=== PATIENT | female | born 1975 | race Caucasian/White ===

== ENCOUNTER 2016-07-26 10:36 | Inpatient (IN) | payer BC, OTHER ==
[2016-06-26 13:50] VITALS: BMI 32.0
--- NOTE | 2016-06-26 14:19 | PAT Medication Instructions ---
Service Date Jun 26, 2016. Current Home Medication List Acyclovir (Zovirax), 400 MG PO BID Albuterol Inhaler (Ventolin Inhaler), 2 PUFFS INH QID PRN for PRN Albuterol Sulf (Proventil 0.083% 2.5MG/3ML), 2.5 MG INH QID PRN for PRN Aspirin (Aspirin Ec), 325 MG PO QAM Buspirone Hcl (Buspar), 5 MG PO TID Cyclobenzaprine Hcl (Flexeril), 10 MG PO HS Fluticasone Propionate (Nasal) (Flonase Allergy Relief), 2 SPRAYS [place]IL[place] QAM Levocetirizine Dihydrochloride (Levocetirizine Dihydrochl), 1 TAB PO QPM Naphazoline/Pheniramine (Naphcon-A), 2 DROPS OPB PRN Saline (Saline Nasal [place] ), 2 [place] PRN Tiotropium [place] (Spiriva Handihaler), 1 CAP INH QAM Tramadol (Ultram), 50 MG PO PRN Valacyclovir (Valtrex), 1,000 MG PO PRN Venlafaxine Hcl (Venlafaxine Extended Rel), 25 MG PO QAM Medication Instructions For Your Scheduled Surgery - Check with surgeon for instructions: Aspirin (Aspirin Ec), 325 MG PO QAM - Take the following medications the morning of surgery with a sip of water: Albuterol Inhaler (Ventolin Inhaler), 2 PUFFS INH QID PRN for PRN (bring with you to hospital morning of surgery) Albuterol Sulf (Proventil 0.083% 2.5MG/3ML), 2.5 MG INH QID PRN for PRN Venlafaxine Hcl (Venlafaxine Extended Rel), 25 MG PO QAM Valacyclovir (Valtrex), 1,000 MG PO PRN Buspirone Hcl (Buspar), 5 MG PO TID Fluticasone Propionate (Nasal) (Flonase Allergy Relief), 2 SPRAYS [place] QAM Tiotropium Lasara (Spiriva Handihaler), 1 CAP INH QAM Saline (Saline Nasal [place] ), 2 [place] PRN Naphazoline/Pheniramine (Naphcon-A), 2 DROPS OPB PRN Acyclovir (Zovirax), 400 MG PO BID Tramadol (Ultram), 50 MG PO PRN (okay to take up to 4 hours prior to surgery if needed) - Take the following medications as scheduled the night before surgery: Albuterol Inhaler (Ventolin Inhaler), 2 PUFFS INH QID PRN for PRN Albuterol Sulf (Proventil 0.083% 2.5MG/3ML), 2.5 MG INH QID PRN for PRN Valacyclovir (Valtrex), 1,000 MG PO PRN Buspirone Hcl (Buspar), 5 MG PO TID Cyclobenzaprine Hcl (Flexeril), 10 MG PO HS Fluticasone Propionate (Nasal) (Flonase Allergy Relief), 2 SPRAYS [place]IL[place] QAM Saline (Saline Nasal [place] Infant), 2 [place] PRN Naphazoline/Pheniramine (Naphcon-A), 2 DROPS OPB PRN Acyclovir (Zovirax), 400 MG PO BID Tramadol (Ultram), 50 MG PO PRN Levocetirizine Dihydrochloride (Levocetirizine Dihydrochl), 1 TAB PO QPM If you have any questions please call us at [phone] (Kimmy Oglesby PA-C) or [phone] or [phone]
--- NOTE | 2016-06-26 14:51 | DIAGNOSTIC IMAGING REPORT ---
CHEST 2 VIEWS ROUTINE CLINICAL HISTORY: PAT preoperative evaluation COMPARISON STUDY: 12/17/2013 FINDINGS: The bones soft tissues and hemidiaphragms are normal. The cardiomediastinal silhouette is normal. The lungs are clear. The pulmonary vasculature is normal. IMPRESSION: Negative chest. Electronically signed by: Sivakumar Cox M.D. 06/26/2016 2:50 PM
[2016-06-26 15:04] LABS: BASO % 0.2 %; BASO ABS # 0.02 K/uL (0-0.2); COMPLETE YES; EOS % 1.8 %; HEMATOCRIT 42.5 % (37-47); IG% 0.3 %; LYMPH % 20.2 %; LYMPH ABS # 2.28 K/uL (1.2-3.4); MEAN CELL VOLUME 93.2 fL (80-100); MEAN CORPUSCULAR HEMOGLOBIN 32.7 pg (25-34); MEAN CORPUSCULAR HGB CONC 35.1 g/dl (32-36); MEAN PLATELET VOLUME 10.5 fL (7.4-10.4); MONO % 7.7 %; NEUT % 69.8 %; PLATELET COUNT 263 K/uL (130-400); RED BLOOD COUNT 4.56 M/uL (4.2-5.4)
[2016-06-26 15:28] LABS: BUN/CREATININE RATIO 13.5 (10-20); CREATININE 0.64 mg/dl (0.60-1.20); POTASSIUM 3.9 mmol/L (3.5-5.1)
[2016-06-26 15:50] LABS: CALCIUM 9.1 mg/dl (8.5-10.1)
--- NOTE | 2016-07-25 10:30 | HISTORY & PHYSICAL EXAMINATION ---
DATE OF ADMISSION: 07/26/2016 CHIEF COMPLAINT: Low back pain and right leg pain, numbness and tingling. HISTORY OF PRESENT ILLNESS: Ms. Rivera is a patient who we have been following along for difficulties with her lower back. She has known spinal stenosis and nerve compression at the L4-L5 and L5-S1 segments. She has failed conservative measures and at this point is considering possible surgical intervention. She denies any micheline weakness, any other numbness, tingling, or paresthesias. PAST MEDICAL HISTORY: Significant for asthma, COPD, migraine headaches. ALLERGIES: SHE HAS ALLERGIES TO Monoleukast. MEDICATIONS: She does not have a current list of medications but should be recorded in her preoperative testing. SOCIAL HISTORY: The patient is a nonsmoker, does not use any alcohol. PHYSICAL EXAMINATION: GENERAL: She stands and moves easily about the exam room. Lower extremity motor exam reveals no focal atrophy. Strength and sensation both intact. She has positive straight leg raise on the right. Visual bruno are grossly intact. CARDIOVASCULAR EXAMINATION: Reveals no gross abnormalities. ABDOMEN: Soft, nontender. EXTREMITIES: Calves are soft and nontender. SKIN: Without any masses or lesions. The patient is alert and oriented. RADIOGRAPHIC IMAGES: Recent MRI demonstrates significant nerve compression at the L4-L5 and L5-S1 segments. ASSESSMENT: Low back pain with right radiculopathy. PLAN: At this point, the patient has failed ongoing conservative measures. We discussed surgical options and at this point would like to proceed with a lumbar decompression at the L4-L5 and L5-S1 segments. This again in conjunction with instrumented fusion as we have to remove a large portion of the facet joints iatrogenically recreating instability. Discussed the benefit of surgery, significant chance of reduction of her radicular complaints to a lesser degree back pain. Risks of surgery include but are not limited to from anesthetic, stroke, blindness, infection, bleeding requiring transfusion, incomplete relief of symptoms, adjacent level disease and need for reoperation. After a thorough discussion, she would like to proceed with surgery as outlined above. We will go ahead and make necessary arrangements for this. Preoperative testing and date of surgery set. MTDD
[~2016-07-26] VITALS: Ht 167.6 cm; Wt 89.7 kg
[2016-07-26] VITALS (7 sets, daily range): BP systolic 112–138; BP diastolic 69–98; PULSE 62–93; TEMP 36.6–37.1; O2SAT 95–99; Ht 167.6 cm; Wt 89.7 kg
--- NOTE | 2016-07-26 07:31 | History & Physical Bridge Note ---
H&P Re-Evaluation Bridge Note: I have examined the patient, reviewed the History & Physical and in the interval since the performance of the History & Physical I have noted the following changes of clinical significance: No changes noted
--- NOTE | 2016-07-26 09:23 | Anesthesiology Progress Note ---
Anesthesia Post Op Note Date & Time Jul 26, 2016 at 09:22 Notes Mental Status: alert / awake / arousable, participated in evaluation Pt Amnestic to Procedure: Yes Nausea / Vomiting: adequately controlled Pain: adequately controlled Airway Patency, RR, SpO2: stable & adequate BP & HR: stable & adequate Hydration State: stable & adequate Anesthetic Complications: no major complications apparent Block working in PACU
[~2016-07-26 10:36] MED LIST: ACYC1CAP8 PO; ALBINS/ INH; ALBUAER19 INH; ASPI325T39 PO; BUSP15TA70 PO; CEFAZOLIN 2000 MG/60 ML D5W IV SCH; CYCL10TA6 PO; FLUT0.15 NAE; LACTATED RINGER'S 1000ML 1,000 ML IV SCH; LEVO-14 PO; NPHA OPB; SALI1SPR15 NAE; TIOTCAP INH; TRAM-10 PO; VALA500T60 PO; VENL75CA73 PO
[2016-07-26] MEDS ORDERED: OMEP40CA PO (11:23)
[2016-07-26] MEDS ORDERED: FENTANYL CITRATE INJ 50 MCG/1 ML 2 ML VIAL ONE ×2 (14:18→14:48)
[2016-07-26] MEDS ORDERED: MIDAZOLAM HCL 1 MG/ML 2ML VIAL ONE (14:18)
[2016-07-26] MEDS ORDERED: HYDROmorphone INJ 2 MG/ML SYR/VIAL ONE (14:48)
[2016-07-26] MEDS ORDERED: PROPOFOL IV EMULSION 10 MG/ML 20 ML VIAL IV ONE (15:06)
[2016-07-26] MEDS ORDERED: ROCURONIUM BROMIDE 10 MG/ML 5 ML VIAL ONE ×2 (15:06→15:36)
[2016-07-26] MEDS ORDERED: LIDOCAINE HCL 2% 2 ML VIAL (20MG/ML) ONE (15:06)
[2016-07-26] MEDS ORDERED: DEXAMETHASONE SOD INJ 4 MG/ML VIAL ONE (15:06)
[2016-07-26] MEDS ORDERED: GLYCOPYRROLATE INJ 0.2 MG/ML VIAL ONE (15:36)
[2016-07-26] MEDS ORDERED: NEOSTIGMINE METHYLSULFATE 1 MG/ML 10ML VIAL ONE (15:36)
[2016-07-26] MEDS ORDERED: PHENYLEPHRINE 100MCG/ML 5ML SYR ONE (15:36)
[2016-07-26] MEDS ORDERED: FLOSEAL HEMOSTATIC MATRIX 10ML TOP ONE (16:18)
[2016-07-26] MEDS ORDERED: BUPIVACAINE/EPINEPHRINE 0.5% MPF 1:200,000 30 ML VIAL INJ ONE (16:18)
[2016-07-26] MEDS ORDERED: BACITRACIN 50000 UNIT VIAL IR ONE (16:18)
[2016-07-26] MEDS ORDERED: SODIUM CHLORIDE 0.9% 1000ML 1,000 ML IV SCH (16:22)
[2016-07-26] MEDS ORDERED: LORAZEPAM 0.5 MG TAB PO PRN (16:30)
[2016-07-26] MEDS ORDERED: NALOXONE HCL 0.4 MG/1 ML VIAL/CARP IV PRN ×2 (16:30)
[2016-07-26] MEDS ORDERED: ALBUTEROL 0.083% NEBU SOLN 3 ML VIAL INH PRN (16:30)
[2016-07-26] MEDS ORDERED: ACETAMINOPHEN 500 MG TAB PO PRN (16:30)
[2016-07-26] MEDS ORDERED: FAMOTIDINE 20 MG TAB PO PRN (16:30)
[2016-07-26] MEDS ORDERED: LORAZEPAM INJ 0.5 MG in SYRINGE 0.75 ML IV PRN (16:30)
[2016-07-26] MEDS ORDERED: ALUMINUM/MAGNESIUM SUSP 30 ML UDC PO PRN (16:30)
[2016-07-26] MEDS ORDERED: ALBUTEROL HFA 8 GM INHALER INH PRN (16:30)
[2016-07-26] MEDS ORDERED: SOD PHOSPHATE/SOD BIPHOSPHATE ENEMA 132 ML BTL PR PRN (16:30)
[2016-07-26] MEDS ORDERED: METOCLOPRAMIDE HCL INJ 5 MG/ML 2 ML VIAL IV PRN (16:30)
[2016-07-26] MEDS ORDERED: NAPHAZOLIN/PHENIRAMIN OPH SOLN 75 DROPS/5 ML BTL OPB PRN (16:30)
[2016-07-26] MEDS ORDERED: ONDANSETRON INJ 2 MG/ML 2 ML VIAL IV PRN ×2 (16:30→18:00)
[2016-07-26] MEDS ORDERED: BISACODYL 10 MG SUPP PR PRN (16:30)
[2016-07-26] MEDS ORDERED: ACETAMINOPHEN IV 100 ML IV PRN (16:30)
[2016-07-26] MEDS ORDERED: DO NOT ADMINISTER PNEUMOCOCCAL VACCINE PRN ×2 (16:30)
[2016-07-26] MEDS ORDERED: hydrOXYzine HCL 25 MG TAB PO PRN (16:30)
[2016-07-26] MEDS ORDERED: DO NOT ADMINISTER FLU VACCINE PRN ×3 (16:30)
[2016-07-26] MEDS ORDERED: MAGNESIUM HYDROXIDE SUSP 30 ML UDC PO PRN (16:30)
[2016-07-26] MEDS ORDERED: PROMETHAZINE HCL INJ 12.5 MG in SODIUM CHLORIDE 0.9% 50ML 50 ML IV PRN (16:30)
[2016-07-26] MEDS ORDERED: HYDROmorphone HCL 0.5MG/ML 50 ML CASSETTE ONE (16:45)
--- NOTE | 2016-07-26 16:59 | DIAGNOSTIC IMAGING REPORT ---
INTRAOPERATIVE FLUOROSCOPIC IMAGES OF THE LUMBAR SPINE CLINICAL HISTORY: L4-S1 decompression and fusion. COMPARISON STUDY: No previous studies for comparison. Fluoroscopy time: 24 seconds. FINDINGS: 3 fluoroscopic images were obtained. These images demonstrate an L4-L5 discectomy. There is a posterior decompression. There are bilateral pedicle screws at the L4, L5 and S1 levels. There are interconnecting rods. Hardware is intact. IMPRESSION: Fluoroscopic images demonstrating an L4-L5 discectomy and L4-S1 bilateral pedicle screw fusion. Electronically signed by: Brian Avendano M.D. 07/26/2016 4:57 PM Dictated Date/Time: 07/26/2016 4:51 PM
[2016-07-26] MEDS ORDERED: ALBUTEROL HFA INHALER 8.5 GM INH ONE (17:07)
--- NOTE | 2016-07-26 17:53 | Anesthesiology Progress Note ---
Anesthesia Post Op Note Date & Time Jul 26, 2016 at 17:52 Vital Signs Pain Intensity: 3 Vital Signs Past 12 Hours Date Time Temp Pulse Resp B/P Pulse Ox O2 Delivery O2 Flow Rate FiO2 07/26/16 17:45 75 14 100/67 95 Nasal Cannula 4 07/26/16 17:35 78 14 117/68 96 Nasal Cannula 4 07/26/16 17:25 36.5 74 16 116/73 95 Nasal Cannula 4 07/26/16 17:15 75 20 128/77 98 Mask 10 07/26/16 17:05 78 25 130/82 100 Mask 10 07/26/16 16:56 36.8 78 16 145/96 100 Mask 10 07/26/16 14:31 74 16 96 Room Air 07/26/16 11:24 37.1 93 20 116/98 96 Room Air Notes Mental Status: alert / awake / arousable, participated in evaluation Pt Amnestic to Procedure: Yes Nausea / Vomiting: adequately controlled Pain: adequately controlled Airway Patency, RR, SpO2: stable & adequate BP & HR: stable & adequate Hydration State: stable & adequate Anesthetic Complications: no major complications apparent
[2016-07-26] MEDS ORDERED: EpHEDrine SULFATE INJ 50 MG/ML AMP IV PRN (18:00)
[2016-07-26] MEDS ORDERED: HYDROmorphone INJ 2 MG/ML SYR/VIAL IV PRN (18:00)
[2016-07-26] MEDS ORDERED: ATROPINE SULFATE 0.1 MG/ML 5ML SYR IV PRN (18:00)
[2016-07-26] MEDS ORDERED: PHENYLEPHRINE 100MCG/ML 5ML SYR IV PRN (18:00)
[2016-07-26] MEDS: HYDROmorphone HCL 0.5MG/ML 50 ML CASSETTE IV PRN ×2 (18:01→23:27)
[2016-07-26] MEDS: LACTATED RINGER'S 1000ML 1,000 ML IV SCH ×2 (18:02→22:51)
--- NOTE | 2016-07-26 18:14 | OPERATIVE REPORT ---
DATE OF OPERATION: 07/26/2016 PREOPERATIVE DIAGNOSIS: Spinal stenosis. POSTOPERATIVE DIAGNOSIS: Same. PROCEDURE PERFORMED: 1. Lumbar decompression, medial facetectomy, and foraminotomy L3-4, L4-5, L5-S1. 2. Posterior spinal fusion L4-5, L5-S1. 3. Placement posterior segmental instrumentation using Orthros rods and screws L4-L5, L5-S1. 4. Interbody fusion L4-L5. 5. Placement of PEEK cage 11 x 22 mm at L4-L5. 6. Placement of locally harvested morselized autograft in the posterior gutters. 7. Placement of Infuse collagen sponge combined with Mastergraft in the posterior gutters. SURGEON: Dr. Lowell Rolle. BREAKFAST COOK: Due to the complex nature of the procedure, the entire surgery was performed with the construction project assistant of JJ Shaffer. The construction project assistant, under direct supervision, was involved in the actual performance of all aspects of the surgical procedure including hemostasis, tissue retraction and incision, instrument management, patient positioning, and wound closure. ANESTHESIA: General. DISPOSITION: The patient awakened and taken to PACU in stable condition. HISTORY OF PATIENT'S PROBLEMS: This is a 40-year-old female that presents with above-mentioned diagnosis after failing an extensive course of nonoperative care, elected to undergo the above-mentioned procedure. Risks, benefits, pros, cons, and alternatives were outlined in detail preoperatively. DESCRIPTION OF PROCEDURE: The patient was met preoperatively, case discussed and all questions were addressed. At that point the patient was taken back to the operative suite and after undergoing successful general intubation by the department of anesthesia was placed in prone position on Delta table atop a Raul frame. All bony prominences were well padded and the eyes were inspected to ensure there was no external pressure placed upon them. At this point, lumbar spine was prepped and draped in normal sterile fashion. Sharp dissection with the assistance of Bovie cautery performed down to and exposing the lamina and transverse processes of L4, L5 and sacral ala bilaterally. From a caudal to cephalad fashion, complete laminectomy of L5, L4, partial laminectomy of L3 was performed addressing severe lateral recess foraminal disease. Pedicle screws were then placed in L4, L5 and S1 levels bilaterally with the assistance of fluoroscopy and appropriate size arsh provisionally placed. I did explore the posterior annulus of L5-S1 noting it to be calcified and elected to avoid interbody of this region. I proceeded to L4-L5 level and at this time through a transforaminal approach on the right, a complete diskectomy performed, endplates curetted to subcortical bleeding bone and an 11 x 22 mm PEEK cage filled with DBM tapped into position. The rods were then locked into final position bilaterally and transverse processes of L4, L5 and sacral ala burred to subcortical bleeding bone. Infuse collagen sponge combined with Mastergraft and locally harvested morcellized autograft was placed in the posterior gutters. A 7 flat SHIV drain was inserted and incision was closed with 1-0 Vicryl in the fascia, 2-0 Vicryl subcutaneously, 4-0 Monocryl for final skin closure. Steri-Strips and sterile dressing placed. The patient was awakened and taken to PACU in stable condition. I attest to the content of the Intraoperative Record and any orders documented therein. Any exceptio ns are noted below.
[2016-07-26] MEDS: CYCLOBENZAPRINE HCL 10 MG TAB PO SCH (20:55)
[2016-07-26] MEDS: ACYCLOVIR 400 MG TAB PO SCH (20:55)
[2016-07-26] MEDS: DOCUSATE SODIUM/SENNA 50/8.6MG TAB PO SCH (20:56)
[2016-07-26] MEDS: CEFAZOLIN IV 2,000 MG in DEXTROSE 5% 50ML 50 ML IV SCH (21:56)
[2016-07-26] MEDS: DEXAMETHASONE INJ 6 MG in SYRINGE 0 ML IV SCH (21:56)
[2016-07-27] VITALS (8 sets, daily range): BP systolic 104–126; BP diastolic 62–84; PULSE 58–93; TEMP 36.7–37; O2SAT 91–100
[2016-07-27] MEDS: LACTATED RINGER'S 1000ML 1,000 ML IV SCH ×3 (05:24→19:13)
[2016-07-27] MEDS: DEXAMETHASONE INJ 6 MG in SYRINGE 0 ML IV SCH ×2 (05:24→13:58)
[2016-07-27] MEDS: CEFAZOLIN IV 2,000 MG in DEXTROSE 5% 50ML 50 ML IV SCH (05:24)
[2016-07-27 05:52] LABS: HEMATOCRIT 37.7 % (37-47); MEAN CELL VOLUME 95.2 fL (80-100); MEAN CORPUSCULAR HEMOGLOBIN 33.3 pg (25-34); MEAN PLATELET VOLUME 10.6 fL (7.4-10.4); PLATELET COUNT 259 K/uL (130-400); RED BLOOD COUNT 3.96 M/uL (4.2-5.4)
[2016-07-27] MEDS ORDERED: DC PCA SCH (06:00)
[2016-07-27] MEDS ORDERED: HYDROmorphone INJ 0.5 MG/0.5 ML SYR IV PRN (06:00)
[2016-07-27] MEDS ORDERED: TRAMADOL HCL 50 MG TAB PO PRN (06:00)
[2016-07-27 06:16] LABS: BASO % 0.1 %; BASO ABS # 0.01 K/uL (0-0.2); COMPLETE YES; EOS % 0.1 %; IG% 0.4 %; LYMPH ABS # 0.91 K/uL (1.2-3.4); MONO % 5.7 %; NEUT % 88.7 %
[2016-07-27 06:31] LABS: BUN/CREATININE RATIO 9.9 (10-20); CALCIUM 8.8 mg/dl (8.5-10.1); CREATININE 0.71 mg/dl (0.60-1.20); POTASSIUM 3.9 mmol/L (3.5-5.1)
[2016-07-27] MEDS: OXYCODONE HCL IR 5 MG TAB (IMMEDIATE RELEASE) PO PRN ×3 (08:44→19:15)
[2016-07-27] MEDS: FLUTICASONE PROPIONATE NA SPR 16 GM BTL NAE SCH (09:17)
[2016-07-27] MEDS: PANTOprazole SOD 40 MG TAB PO SCH (09:18)
[2016-07-27] MEDS: ASPIRIN 325 MG ECTAB PO SCH (09:18)
[2016-07-27] MEDS: VENLAFAXINE HCL XR 75 MG CAPXR PO SCH (09:19)
[2016-07-27] MEDS: ACYCLOVIR 400 MG TAB PO SCH ×2 (09:19→20:59)
[2016-07-27] MEDS ORDERED: RXC5 PO (09:53)
--- NOTE | 2016-07-27 09:54 | Discharge Instructions ---
Discharge Instructions Admission Reason for Admission: Lumbar Spinal Stenosis Discharge Discharge Diagnosis / Problem: stenosis Discharge Goals Goal(s): Improve function Activity Recommendations Activity Limitations: per Instructions/Follow-up section . Instructions / Follow-Up Instructions / Follow-Up ACTIVITY RECOMMENDATIONS: SELF CARE INSTRUCTIONS AFTER THORACIC/LUMBAR FUSIONS 1. You may walk to your tolerance. It is good exercise for your legs and back. Expect some back and intermittent leg aches and pains. 2. You may perform "counter-top" level activities (make a sandwich, claudette with a project, etc.). 3. No bending or lifting of more than 10 pounds or back twisting of any nature (roll like a log when turning in bed). 4. You may ride in a car for 20-30 minutes at a time. No driving until after your first visit with your doctor. 5. Frequent changes of position and restricting sitting to 30 minutes at a time will help limit the amount of back spasms and stiffness you may experience. 6. You may discontinue the use of ambulatory aids (cane, crutches, etc.) once your strength and confidence allow. 7. You may staffing manager the shower and let water strike your incision when you arrive home at least once daily. Do not take a tub bath, sit in a hot tub or go into a swimming pool until after your first recheck in the office. SPECIAL CARE INSTRUCTIONS: VERY IMPORTANT TO READ AND REVIEW A. Your surgical incision has been closed with a cosmetic suture under the skin that will dissolve in about 6 weeks. In 14 days, you can use a pair of clean scissors and cut the suture that is left outside of the skin at the ends of your incision. 1. The small skin tapes can be removed 7 days after surgery if they have not fallen off by that point. 2. You may keep the wound open to air as much as possible to promote healing after post-op day number 5 unless told otherwise by your doctor. 3. If you think the wound looks like it is becoming infected (redness or worsening drainage) and/or you are experiencing fever, chill or worsening back pain and muscle spasms, contact the office so that we may evaluate you as soon as possible. B. Complications are uncommon, but please contact us if you have any signs or symptoms of: 1. wound infection (fever higher than 102.5 degrees F, redness, separation of wound, drainage, or increasing pain from the incision) 2. blood clots in legs (pain, swelling, redness and warmth in legs) 3. urinary tract infection (fever higher than 102.5 degrees F, burning upon urination or increased frequency of urination) 4. nerve problems (inability to walk on your toes or heels, numbness, loss of bowel or bladder control) 5. any other symptoms that concern you C. Please call the office at if you have any concerns or questions about your operation or recovery. D. No smoking! Smoking drastically decreases the chance of a solid fusion. E. Do not take any anti-inflammatory medications (Indocin, Advil, Motrin, Aspirin, Naprosyn, etc.) as these may inhibit the chance of a solid fusion. Tylenol is okay to take for pain. MANAGING PAIN AFTER SPINAL SURGERY 1. Narcotic medication is intended for short-term use and will be provided for surgical pain. Surgical pain usually lasts for a period of 4-6 weeks. Narcotic medication includes Percocet, Vicodin, Darvocet, Tylenol #3 or Lortab. 2. Longer-term pain is more appropriately treated with non-narcotic medication such as Tylenol ES. 3. Muscle spasm is not appropriately treated with narcotics. Muscle relaxers such as Soma, Flexeril or Skelaxin can be used along with Tylenol ES. 4. Remember that we all live with some "aches and pains". This is not unusual or uncommon after an injury or as we get older. a. Back pain is expected and may include muscle spasms for 4 to 6 weeks after surgery. The pain should gradually improve. If the pain worsens for no apparent reason, please contact the office. b. Intermittent leg pain may also be experienced and should not be concerned about unless it worsens for no apparent reason. If so, please contact the office. 5. We will provide appropriate medication within the normal guidelines of their prescribed use. We will also be very cautious and aware of potential abuse and extended duration of patients' medication needs. a. Pain medications are for your comfort and to assist with sleep and rest so that the tissue can heal. They are not provided in order to return to normal activity and should not be used through the day. To do so or worsening pain at night can result from ongoing tissue damage and development of tolerance to the prescribed medicine. 6. Please allow 2-3 days to process refills. Prescriptions will not be mailed but must be picked up at the office. FOLLOW UP VISIT: Keep your scheduled follow-up appointment. Any questions, please call the office at . Current Hospital Diet Patient's current hospital diet: Regular Diet Discharge Diet Recommended Diet: Regular Diet Procedures Procedures Performed: L4-S1 Transforaminal Lumbar Decompression/Laminectomy, Discectomy; Placement of Interbody Spacer L4-L5; Pedicle Screw Fixation; Application oF Allograft; Bone Morphogenetic Protein; Posterolateral Gutter Fusion Pending Studies Studies pending at discharge: no Medical Emergencies . Who to Call and When: Medical Emergencies: If at any time you feel your situation is an emergency, please call 911 immediately. . Non-Emergent Contact Non-Emergency issues call your: Primary Care Provider . "Provider Documentation" section prepared by Lowell Rolle. VTE Core Measure Inpt VTE Proph given/why not?: Khalida Villeda, SCD's
--- NOTE | 2016-07-27 11:16 | PROGRESS NOTE ---
DATE: 07/27/2016 Postop day 1. Back pain is controlled. Leg pain improved. Vital signs stable. T-max 36.9. SHIV drain 110 mL over the last shift. Hematocrit this a.m. is 37.7. On exam, the patient is in chair at bedside. Demonstrates good strength to testing, appears comfortable. ASSESSMENT: Status post lumbar decompression and fusion with good progress. PLAN: At this time, we will continue physical therapy, advance her bowel regimen, possible discharge home tomorrow.
[2016-07-27] MEDS: CYCLOBENZAPRINE HCL 10 MG TAB PO SCH (20:56)
[2016-07-27] MEDS: DOCUSATE SODIUM/SENNA 50/8.6MG TAB PO SCH (20:56)
[2016-07-28 00:24] VITALS: PULSE 75; O2SAT 96
[2016-07-28] MEDS ORDERED: NURSING VERBAL MED ORDER ONE (01:45)
[2016-07-28] MEDS ORDERED: POLYETHYLENE (MIRALAX) 17 GM PACK PO SCH (06:00)
[2016-07-28 06:56] VITALS: BP 124/83; PULSE 82; TEMP 36.9; O2SAT 95
[2016-07-28] MEDS: OXYCODONE HCL IR 5 MG TAB (IMMEDIATE RELEASE) PO PRN (07:17)
[2016-07-28] MEDS: FLUTICASONE PROPIONATE NA SPR 16 GM BTL NAE SCH (07:18)
[2016-07-28] MEDS: ASPIRIN 325 MG ECTAB PO SCH (07:18)
[2016-07-28] MEDS: PANTOprazole SOD 40 MG TAB PO SCH (07:19)
[2016-07-28] MEDS: VENLAFAXINE HCL XR 75 MG CAPXR PO SCH (07:19)
[2016-07-28 07:59] VITALS: PULSE 82; O2SAT 95
--- NOTE | 2016-07-28 08:09 | ORTHOPEDIC PROGRESS NOTE ---
DATE: 07/28/2016 She is postoperative day 2 lumbar decompression and fusion. She is doing fantastic. She has no complaints. Back pain is controlled. She has no radicular leg pain. She is ambulating over 300 feet in physical therapy without issue. SHIV drain output last shift was 60 mL. She has had a bowel movement yesterday. No other complaints. PHYSICAL EXAMINATION: GENERAL: She is sitting in a chair eating breakfast. No obvious distress. EXTREMITIES: Strength is intact bilateral extremities. Calves are soft and nontender bilaterally. Neurovascularly intact. ASSESSMENT: Postoperative day 2 lumbar decompression and fusion. PLAN: At this point in time, she is going to undergo physical therapy this morning to include steps. Will remove SHIV drain and dressing change and discharge her home later on this afternoon.
--- NOTE | 2016-07-28 08:23 | DISCHARGE SUMMARY ---
DATE OF DISCHARGE: 07/28/2016 The patient entered the hospital on 07/26/2016 with a preoperative diagnosis of spinal stenosis. She underwent lumbar decompression instrumented fusion L4-5, L5-S1. She has had an uneventful postoperative course. Pain has been well controlled. She is doing well in physical therapy. Lab values stable. She is being discharged home on postoperative day 2. MEDICAL HISTORY: The patient's medical history is significant for COPD, migraines, asthma. SURGICAL HISTORY: None listed. ALLERGIES: INCLUDE MONTELUKAST. MEDICATIONS AT HOME: None. SOCIAL HISTORY: She denies alcohol use, denies tobacco use. Any further questions can be found in her chart for review.
[2016-07-28 10:21] VITALS: BP 124/83; PULSE 82; TEMP 36.9; O2SAT 95
== END 2016-07-28 10:47 | disposition home or self-care (01) | DRG 460 ==
LOC: ENRESERVDT → ENRESERVTM → C.ACU 10:36 → C.MSW 11:15
PROVIDERS: ADMIT Orthopaedic Surgery Orthopaedic Surgery of the Spine; ATTEND Orthopaedic Surgery Orthopaedic Surgery of the Spine
PROC: 0SG30A1 (ICD-10-PCS; 2016-07-26)
PROC: 00NY0ZZ Release Lumbar Spinal Cord, Open Approach (ICD-10-PCS; 2016-07-26)
PROC: 0ST20ZZ Resection of Lumbar Vertebral Disc, Open Approach (ICD-10-PCS; 2016-07-26)
PROC: 0SG00A1 (ICD-10-PCS; principal; 2016-07-26 12:45)
DX: M48.07 Spinal stenosis, lumbosacral region (principal); J44.9 Chronic obstructive pulmonary disease, unspecified; M54.5 Low back pain; G43.909 Migraine, unspecified, not intractable, without status migrainosus; J45.909 Unspecified asthma, uncomplicated

== ENCOUNTER → 2017-09-12 | Day surgery (SDC) | payer OTHER ==
[2017-08-15 10:11] VITALS: BMI 32.0
--- NOTE | 2017-09-02 12:48 | DIAGNOSTIC IMAGING REPORT ---
CHEST 2 VIEWS ROUTINE HISTORY: 42 years-old Female PRE preoperative exam. No acute chest complaints COMPARISON: None available TECHNIQUE: Chest radiographs 06/26/2016 FINDINGS: Cardia mediastinal and hilar silhouettes are within normal limits. There is no pneumothorax, pleural effusion, focal airspace consolidation or overt pulmonary edema. Bones of the chest appear grossly intact. IMPRESSION: No acute process. The above report was generated using voice recognition software. It may contain grammatical, syntax or spelling errors. Electronically signed by: Alvaro Tubbs M.D. 09/02/2017 12:47 PM Dictated Date/Time: 09/02/2017 12:46 PM
[2017-09-02 13:19] LABS: BASO % 0.3 %; BASO ABS # 0.02 K/uL (0-0.2); EOS % 2.6 %; EOS ABS # 0.21 K/uL (0-0.5); HEMOGLOBIN 15.6 g/dL (12.0-16.0); IG# 0.02 K/uL (0.00-0.02); LYMPH % 32.7 %; MEAN CELL VOLUME 94.9 fL (80-100); MEAN CORPUSCULAR HEMOGLOBIN 34.4 pg (25-34); MEAN CORPUSCULAR HGB CONC 36.3 g/dl (32-36); MEAN PLATELET VOLUME 10.8 fL (7.4-10.4); MONO % 9.6 %; MONO ABS # 0.76 K/uL (0.11-0.59); NEUT % 54.5 %; NEUT ABS # 4.34 K/uL (1.4-6.5); PLATELET COUNT 240 K/uL (130-400); RED CELL DISTRIBUTION WIDTH CV 12.9 % (11.5-14.5); RED CELL DISTRIBUTION WIDTH SD 44.7 fL (36.4-46.3); WHITE BLOOD COUNT 7.95 K/uL (4.8-10.8)
[2017-09-02 13:28] LABS: INR 0.9 (0.9-1.1); PTT PATIENT 26.3 SECONDS (21.0-31.0)
[2017-09-02 13:49] LABS: CALCIUM 8.5 mg/dl (8.5-10.1); CREATININE 0.77 mg/dl (0.60-1.20); POTASSIUM 3.7 mmol/L (3.5-5.1)
[~2017-09-12] VITALS: Ht 165.1 cm; Wt 88.6 kg
[~2017-09-12] MED LIST changes: +ACET-1256 PO; +ACETAMINOPHEN 325 MG TAB PO PRN; +ACYC-57 PO; -ACYC1CAP8 PO; -ALBUAER19 INH; -ASPI325T39 PO; +ATROPINE SULFATE 0.1 MG/ML 5ML SYR IV PRN; +BACITRACIN 50000 UNIT VIAL ONE; +BUPIVACAINE/EPINEPHRINE 0.5% MPF 1:200,000 30 ML VIAL ONE; -CEFAZOLIN 2000 MG/60 ML D5W IV SCH; +CEFAZOLIN 2000MG IV PUSH 15 ML IV SCH; -CYCL10TA6 PO; +DEXAMETHASONE SOD INJ 4 MG/ML VIAL ONE; +FENTANYL CITRATE INJ 50 MCG/1 ML 2 ML VIAL ONE; +FLOSEAL HEMOSTATIC MATRIX 5ML TOP ONE; +GABA-113 PO; +HYDROmorphone INJ 1 MG/ML SYR IV PRN; +HYDROmorphone INJ 2 MG/ML SYR/VIAL IV PRN; +KETOROLAC TROMETHAMINE 30 MG/ML VIAL IV. PRN; +KETOROLAC TROMETHAMINE 30 MG/ML VIAL ONE; +LIDOCAINE HCL 2% 2 ML VIAL (20MG/ML) ONE; +METOCLOPRAMIDE HCL INJ 5 MG/ML 2 ML VIAL ONE; +MIDAZOLAM HCL 1 MG/ML 2ML VIAL ONE; +ONDANSETRON INJ 2 MG/ML 2 ML VIAL IV PRN; +ONDANSETRON INJ 2 MG/ML 2 ML VIAL ONE; +OXYC-57 PO; +OXYCODONE HCL IR 5 MG TAB (IMMEDIATE RELEASE) PO PRN; +PROPOFOL IV EMULSION 10 MG/ML 20 ML VIAL IV ONE; +RANITIDINE HCL 25 MG/ML INJ ONE; +ROCURONIUM BROMIDE 10 MG/ML 5 ML VIAL IV ONE; +SPRIN/30 INH; -TIOTCAP INH; +TOPI50TA16 PO; +VNTHFA/IN INH
[2017-09-12 06:54] VITALS: BP 119/75; PULSE 88; TEMP 37.3; O2SAT 97; Ht 165.1 cm; Wt 88.6 kg
--- NOTE | 2017-09-12 07:35 | History and Physical ---
History & Physical Date Sep 12, 2017. Chief Complaint Chronic back and leg pain History of Present Illness The patient is a 42 year old female with complaints of chronic back and leg pain Past Medical/Surgical History Medical Problems: (1) Lumbar spinal stenosis Additional History Hepatic Disease: No Endocrine Disorder: No Kidney Disease: No Hypertension: No Heart Disease: No Bleeding Tendencies: No Infectious Diseases: No Allergies Coded Allergies: Montelukast (Verified Allergy, Unknown, Leg pain., 09/12/17) Reported by PT/[facility] record. Home Medications Scheduled Acetaminophen (Tylenol), 500 MG PO PRN Acyclovir (Zovirax), 400 MG PO BID Buspirone Hcl (Buspar), 10 MG PO TID Fluticasone Propionate (Nasal) (Flonase Allergy Relief), 2 SPRAYS [place]IL[place] QAM Gabapentin (Neurontin), 600 MG PO TID Levocetirizine Dihydrochloride (Levocetirizine Dihydrochl), 1 TAB PO QPM Naphazoline/Pheniramine (Naphcon-A), 2 DROPS OPB PRN Saline (Saline Nasal [place] Infant), 2 [place] PRN Tiotropium [place] (Spiriva Handihaler), 1 CAP INH QAM Topiramate (Topamax), 50 MG PO BID Tramadol (Ultram), 50 MG PO PRN Tramadol (Ultram), 200 MG PO QAM Valacyclovir (Valtrex), 1,000 MG PO PRN Venlafaxine Hcl (Venlafaxine Extended Rel), 225 MG PO QAM Scheduled PRN Albuterol Hfa (Ventolin Hfa), 2 PUFFS INH Q6H PRN for PRN Albuterol Sulf (Proventil 0.083% 2.5MG/3ML), 2.5 MG INH QID PRN for PRN Diagnosis Chronic back and leg pain Plan of Treatment Spinal cord stimulator trial
--- NOTE | 2017-09-12 09:09 | [facility] Operative Report ---
Operative Report Operative Date Sep 12, 2017. Pre-Operative Diagnosis Lumbar Spinal Stenosis Post-Operative Diagnosis same as pre-operative Procedure(s) Performed #1 T10 laminotomy. #2 placement of 16-lead dorsal column stimulator paddle with temporary leads attached. Surgeon Dr. Lowell Rolle Guide Dog Mobility Instructor Surgeon(s) Payam Jolly PA-C Estimated Blood Loss 5mL Findings Consistent with diagnosis Specimens none, Per Surgeon Anesthesia Type General Description of Procedure Patient was met with preoperatively case discussed all questions addressed. After informed consent obtained patient was taken to the operative suite underwent underwent intubation placed in a prone position the Delta table on top Raul frame. All bony prominences were well-padded the eyes inspected to ensure no external pressure placed upon them. This point the thoracal lumbar spine was prepped and draped in normal sterile fashion. The assistance of fluoroscopy identified the T10 11 interlaminar space. Sharp dissection with the assistance of Bovie cautery was performed onto an exposing this region. Self-retaining retractors placed. Then performed a midline T10 laminotomy large enough to place a 16-lead dorsal columns stimulator paddle. This was placed and verified with fluoroscopy. Was then sewn into position. I attached the temporary leads. The trochar was used to place the temporary leads to the lateral flank. There were tested for efficacy. After this complete the incisions were copiously irrigated closed with subcutaneous Vicryl and 4-0 Monocryl for final skin closure. Steri-Strips dressings placed. Patient will continue PACU stable condition. Please note Payam Jolly was present at the entire procedure involved in patient positioning complex portions of the surgery and final skin closure. I attest to the content of the Intraoperative Record and any orders documented therein. Any exceptions are noted below.
--- NOTE | 2017-09-12 09:11 | Discharge Instructions ---
Discharge Instructions Date of Service Sep 12, 2017. 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 Instructions / Follow-Up Instructions / Follow-Up ACTIVITY RECOMMENDATIONS: SELF CARE INSTRUCTIONS AFTER A LAMINECTOMY 1. No prolonged sitting (less than 30 minutes for the first 3 weeks after surgery). 2. No bending, lifting more than 5 pounds, or twisting (roll like a log when turning in bed). 3. You may shower 3 days after surgery if no drainage from wound. Thoroughly dry wound. Do not soak in the tub. 4. Please walk as much as you can for exercise. Gradually increase the distance that you walk as your endurance increases. 5. You may drive in 7-10 days if you are comfortable and no longer requiring pain medications. SPECIAL CARE INSTRUCTIONS: VERY IMPORTANT TO READ AND REVIEW A. Your surgical incision has been closed with a cosmetic suture under the skin that will dissolve in about 6 weeks. In 14 days, you can use a pair of clean scissors and cut the suture that is left outside of the skin at the ends of your incision. B. Complications are uncommon, but please contact us if you have any signs or symptoms of: 1. wound infection (fever higher than 102.5 degrees F, redness, separation of wound, drainage, or increasing pain from the incision) 2. blood clots in legs (pain, swelling, redness and warmth in legs) 3. urinary tract infection (fever higher than 102.5 degrees, burning upon urination or increased frequency of urination) 4. nerve problems (inability to walk on your toes or heels, numbness, loss of bowel or bladder control) 5. any other symptoms that concern you. C. Please call the office at if you have any concerns or questions about your operation or recovery. MANAGING PAIN AFTER SPINAL SURGERY 1. Narcotic medication is intended for short-term use and will be provided for surgical pain. Surgical pain usually lasts for a period of 4-6 weeks. Narcotic medication includes Percocet, Vicodin, Darvocet, Tylenol #3 or Lortab. 2. Longer-term pain is more appropriately treated with non-narcotic medication such as Tylenol ES. 3. Muscle spasm is not appropriately treated with narcotics. Muscle relaxers such as Soma, Flexeril or Skelaxin can be used along with Tylenol ES. 4. Remember that we all live with some "aches and pains". This is not unusual or uncommon after an injury or as we get older. 5. We will provide appropriate medication within the normal guidelines of their prescribed use. We will also be very cautious and aware of potential abuse and extended duration of patients' medication needs. 6. Please allow 2-3 days to process refills. Prescriptions will not be mailed but must be picked up at the office. FOLLOW UP VISIT: Keep your scheduled follow-up appointment. Any questions, please call the office at . Current Hospital Diet Patient's current hospital diet: Discharge Diet Recommended Diet: Regular Diet Procedures Procedures Performed: #1 T10 laminotomy. #2 placement of 16-lead dorsal column stimulator paddle with temporary leads attached. Pending Studies Studies pending at discharge: no Medical Emergencies . Who to Call and When: Medical Emergencies: If at any time you feel your situation is an emergency, please call 911 immediately. . Non-Emergent Contact Non-Emergency issues call your: Primary Care Provider . "Provider Documentation" section prepared by Lowell Rolle. . VTE Core Measure Inpt VTE Proph given/why not?: Khalida Villeda, SCD's
--- NOTE | 2017-09-12 09:34 | DIAGNOSTIC IMAGING REPORT ---
INTRAOPERATIVE RADIOGRAPH CLINICAL HISTORY: Spinal cord stimulator trial. Fluoroscopy time: 5 seconds. FINDINGS: A single spot fluoroscopic view of the lower thoracic spine is presented. A stimulator lead projects over the body of T9. The leads are intact as visualized. IMPRESSION: Intraoperative image from a spinal cord stimulator trial procedure as above. Electronically signed by: Hamlet Carl M.D. 09/12/2017 9:33 AM Dictated Date/Time: 09/12/2017 9:32 AM
--- NOTE | 2017-09-12 10:04 | Anesthesiology Progress Note ---
Anesthesia Post Op Note Date & Time Sep 12, 2017 at 10:03 Vital Signs Pain Intensity: 1 Vital Signs Past 12 Hours Date Time Temp Pulse Resp B/P (MAP) Pulse Ox O2 Delivery O2 Flow Rate FiO2 09/12/17 09:55 36.4 94 18 129/79 97 Room Air 09/12/17 09:45 88 14 134/78 99 Oxymask 7 09/12/17 09:35 84 14 128/81 99 Oxymask 7 09/12/17 09:25 36.1 81 14 145/83 99 Oxymask 7 09/12/17 06:54 37.3 88 20 119/75 (90) 97 Room Air Notes Mental Status: alert / awake / arousable, participated in evaluation Pt Amnestic to Procedure: Yes Nausea / Vomiting: adequately controlled Pain: adequately controlled Airway Patency, RR, SpO2: stable & adequate BP & HR: stable & adequate Hydration State: stable & adequate Anesthetic Complications: no major complications apparent
[2017-09-12 10:25] VITALS: BP 109/72; PULSE 92; TEMP 37; O2SAT 94
[2017-09-12 10:55] VITALS: BP 124/74; PULSE 100; TEMP 37; O2SAT 97
== END | disposition home or self-care (01) ==
LOC: C.ACU 06:05
PROVIDERS: ATTEND Orthopaedic Surgery Orthopaedic Surgery of the Spine
DX: M51.37 Other intervertebral disc degeneration, lumbosacral region (principal); M48.062 Spinal stenosis, lumbar region with neurogenic claudication; M79.606 Pain in leg, unspecified; F41.8 Other specified anxiety disorders; F17.200 Nicotine dependence, unspecified, uncomplicated; F31.9 Bipolar disorder, unspecified; Z79.899 Other long term (current) drug therapy; Z98.890 Other specified postprocedural states

== ENCOUNTER → 2017-09-29 | Day surgery (SDC) | payer OTHER ==
[~2017-09-29] VITALS: Ht 165.1 cm; Wt 87.6 kg
[~2017-09-29] MED LIST changes: -CEFAZOLIN 2000MG IV PUSH 15 ML IV SCH; +CEPH500C PO; +CHECK SCOPOLAMINE PATCH PLACEMENT SCH; +EpHEDrine SULFATE INJ 50 MG/ML AMP IV PRN; +EpHEDrine SULFATE INJ 50 MG/ML AMP ONE; +FENTANYL CITRATE INJ 50 MCG/1 ML 2 ML VIAL IV PRN; +GLYCOPYRROLATE INJ 0.2 MG/ML VIAL ONE; -HYDROmorphone INJ 2 MG/ML SYR/VIAL IV PRN; -KETOROLAC TROMETHAMINE 30 MG/ML VIAL ONE; -METOCLOPRAMIDE HCL INJ 5 MG/ML 2 ML VIAL ONE; +NEOSTIGMINE METHYLSULFATE 5 MG/5 ML SYR ONE; +NURSING VERBAL MED ORDER ONE; +OXYCODONE/ACETAMINOPHEN 5-325 TAB ONE; +PHENYLEPHRINE HCL INJ 10 MG/ML VIAL ONE; +PRED-301 PO; -RANITIDINE HCL 25 MG/ML INJ ONE; +SCOPOLAMINE 1.5 MG TDSY TD ONE; +SUCCINYLCHOLINE CHLORIDE 20 MG/ML 10 ML VIAL IV ONE
[2017-09-29 06:04] VITALS: BP 119/77; PULSE 80; TEMP 37.1; O2SAT 95; Ht 165.1 cm; Wt 87.6 kg
--- NOTE | 2017-09-29 14:09 | History and Physical ---
History & Physical Date Sep 29, 2017. Chief Complaint Back and leg pain History of Present Illness The patient is a 42 year old female with complaints of Back and leg pain Past Medical/Surgical History Medical Problems: (1) Lumbar spinal stenosis Additional History Hepatic Disease: No Endocrine Disorder: No Kidney Disease: No Hypertension: No Heart Disease: No Bleeding Tendencies: No Infectious Diseases: No Allergies Coded Allergies: Montelukast (Verified Adverse Reaction, Unknown, Leg pain., 09/29/17) Reported by PT/[facility] record. Home Medications Scheduled Acetaminophen (Tylenol), 500 MG PO PRN Acyclovir (Zovirax), 400 MG PO BID Buspirone Hcl (Buspar), 10 MG PO TID Cephalexin Monohydrate (Keflex), 1 CAP PO BID Fluticasone Propionate (Nasal) (Flonase Allergy Relief), 2 SPRAYS CECILLE QAM Gabapentin (Neurontin), 600 MG PO TID Levocetirizine Dihydrochloride (Levocetirizine Dihydrochl), 1 TAB PO QPM Naphazoline/Pheniramine (Naphcon-A), 2 DROPS OPB PRN Prednisone (Prednisone), Unknown Dose PO DIRECTED Saline (Saline Nasal [place] ), 2 SPRY CECILLE PRN Tiotropium Evergreen (Spiriva Handihaler), 1 CAP INH QAM Topiramate (Topamax), 50 MG PO BID Tramadol (Ultram), 50 MG PO PRN Tramadol (Ultram), 200 MG PO QAM Valacyclovir (Valtrex), 1,000 MG PO PRN Venlafaxine Hcl (Venlafaxine Extended Rel), 225 MG PO QAM Scheduled PRN Albuterol Hfa (Ventolin Hfa), 2 PUFFS INH Q6H PRN for PRN Albuterol Sulf (Proventil 0.083% 2.5MG/3ML), 2.5 MG INH QID PRN for PRN Oxycodone/Acetaminophen 5MG/325MG (Percocet 5MG/325MG), 1-2 TABLETS PO Q6 PRN for Pain Physical Examination Skin: warm/dry, no rash Eyes: normal inspection, EOMI, sclerae normal ENT: normal ENT inspection, pharynx normal Head: normocephalic, atraumatic Neck: supple, no adenopathy, trachea midline Respiratory/Chest: lungs clear, normal breath sounds, no respiratory distress Cardiovascular: regular rate, rhythm, no edema, no murmur Abdomen / GI: normal bowel sounds, non tender Back: normal inspection Extremities: normal inspection, normal range of motion Neurologic/Psych: no motor/sensory deficits, alert, normal reflexes, oriented x 3 Diagnosis Chronic back and leg pain Plan of Treatment Spinal cord stimulator placement
--- NOTE | 2017-09-29 14:57 | [facility] Operative Report ---
Operative Report Operative Date Sep 29, 2017. Pre-Operative Diagnosis Lumbar Stenosis Post-Operative Diagnosis Lumbar Stenosis Procedure(s) Performed 1. Removal of temporary spinal cord stimulator leads. #2 implantation of spinal cord stimulator battery. Surgeon Dr. Rolle Director Compliance Surgeon(s) Chelita Trujillo PA-C Estimated Blood Loss 10ml Findings Findings consistent with diagnosis Specimens none per surgeon Description of Procedure Patient was met with preoperativelly case discussed all questions addressed. After informed consent obtained patient was taken to the operative suite underwent intubation and placed in the prone position the Delta table on top of the Raul frame. All bony prominences were well-padded and the eye is inspected to ensure no external pressure placed upon them. At this point the thoracolumbar spine was prepped and draped in the normal sterile fashion. Then we opened the T10 laminotomy site removing the temporary leads.. These were detached. I then created a pocket over the right flank large enough for the spinal cord stimulate her battery. A trocar was used to run the leads to the battery pocket site was they were then attached the battery tested for efficacy. The batteries and placed within the pocket incision was copiously irrigated with antibiotic solution and closed with 1 Vicryl the fascia 2-0 Vicryl subcutaneously and 4-0 Monocryl for fashion closures. Steri-Strips sterile dressings placed. Patient weakened taken to PACU in stable condition. Please note Chelita Sellers was present throughout the entire procedure involved the patient positioning complex portions of the surgery and final skin closure. I attest to the content of the Intraoperative Record and any orders documented therein. Any exceptions are noted below.
--- NOTE | 2017-09-29 15:00 | Discharge Instructions ---
Discharge Instructions Date of Service Sep 29, 2017. Admission Reason for Admission: Lumbar Post-Laminectomy Syndrome Discharge Discharge Diagnosis / Problem: chronic back and leg pain Discharge Goals Goal(s): Decrease discomfort Activity Recommendations Activity Limitations: per Instructions/Follow-up section . Instructions / Follow-Up Instructions / Follow-Up ACTIVITY RECOMMENDATIONS: SELF CARE INSTRUCTIONS AFTER A LAMINECTOMY 1. No prolonged sitting (less than 30 minutes for the first 3 weeks after surgery). 2. No bending, lifting more than 5 pounds, or twisting (roll like a log when turning in bed). 3. You may shower 3 days after surgery if no drainage from wound. Thoroughly dry wound. Do not soak in the tub. 4. Please walk as much as you can for exercise. Gradually increase the distance that you walk as your endurance increases. 5. You may drive in 7-10 days if you are comfortable and no longer requiring pain medications. SPECIAL CARE INSTRUCTIONS: VERY IMPORTANT TO READ AND REVIEW A. Your surgical incision has been closed with a cosmetic suture under the skin that will dissolve in about 6 weeks. In 14 days, you can use a pair of clean scissors and cut the suture that is left outside of the skin at the ends of your incision. B. Complications are uncommon, but please contact us if you have any signs or symptoms of: 1. wound infection (fever higher than 102.5 degrees F, redness, separation of wound, drainage, or increasing pain from the incision) 2. blood clots in legs (pain, swelling, redness and warmth in legs) 3. urinary tract infection (fever higher than 102.5 degrees, burning upon urination or increased frequency of urination) 4. nerve problems (inability to walk on your toes or heels, numbness, loss of bowel or bladder control) 5. any other symptoms that concern you. C. Please call the office at if you have any concerns or questions about your operation or recovery. MANAGING PAIN AFTER SPINAL SURGERY 1. Narcotic medication is intended for short-term use and will be provided for surgical pain. Surgical pain usually lasts for a period of 4-6 weeks. Narcotic medication includes Percocet, Vicodin, Darvocet, Tylenol #3 or Lortab. 2. Longer-term pain is more appropriately treated with non-narcotic medication such as Tylenol ES. 3. Muscle spasm is not appropriately treated with narcotics. Muscle relaxers such as Soma, Flexeril or Skelaxin can be used along with Tylenol ES. 4. Remember that we all live with some "aches and pains". This is not unusual or uncommon after an injury or as we get older. 5. We will provide appropriate medication within the normal guidelines of their prescribed use. We will also be very cautious and aware of potential abuse and extended duration of patients' medication needs. 6. Please allow 2-3 days to process refills. Prescriptions will not be mailed but must be picked up at the office. FOLLOW UP VISIT: Keep your scheduled follow-up appointment. Any questions, please call the office at . Current Hospital Diet Patient's current hospital diet: Discharge Diet Recommended Diet: Regular Diet Procedures Procedures Performed: 1. Removal of temporary spinal cord stimulator leads. #2 implantation of spinal cord stimulator battery. Pending Studies Studies pending at discharge: no Medical Emergencies . Who to Call and When: Medical Emergencies: If at any time you feel your situation is an emergency, please call 911 immediately. . Non-Emergent Contact Non-Emergency issues call your: Primary Care Provider . "Provider Documentation" section prepared by Lowell Rolle. .
--- NOTE | 2017-09-29 16:04 | Anesthesiology Progress Note ---
Anesthesia Post Op Note Date & Time Sep 29, 2017 at 16:03 Vital Signs Pain Intensity: 5 Vital Signs Past 12 Hours Date Time Temp Pulse Resp B/P (MAP) Pulse Ox O2 Delivery O2 Flow Rate FiO2 09/29/17 15:57 118/69 09/29/17 15:54 78 14 09/29/17 15:54 81 14 94 09/29/17 15:52 134/79 09/29/17 15:49 69 16 100 09/29/17 15:49 67 16 09/29/17 15:48 64 15 100 09/29/17 15:48 64 15 09/29/17 15:46 119/68 09/29/17 15:43 68 18 100 09/29/17 15:43 70 18 09/29/17 15:41 120/70 09/29/17 15:38 66 17 09/29/17 15:38 66 17 100 09/29/17 15:36 122/71 09/29/17 15:33 72 19 09/29/17 15:33 73 19 100 09/29/17 15:32 140/87 09/29/17 15:29 138/77 09/29/17 15:28 36.0 72 16 138/77 99 Oxymask 10 09/29/17 06:04 37.1 80 18 119/77 (91) 95 Room Air Notes Mental Status: alert / awake / arousable, participated in evaluation Pt Amnestic to Procedure: Yes Nausea / Vomiting: adequately controlled Pain: adequately controlled Airway Patency, RR, SpO2: stable & adequate BP & HR: stable & adequate Hydration State: stable & adequate Anesthetic Complications: no major complications apparent
[2017-09-29 16:13] VITALS: BP 140/77; PULSE 69; TEMP 36.6; O2SAT 97
[2017-09-29 16:43] VITALS: BP 119/70; PULSE 60; TEMP 36.5; O2SAT 98
== END | disposition home or self-care (01) ==
LOC: C.ACU 05:37
PROVIDERS: ATTEND Orthopaedic Surgery Orthopaedic Surgery of the Spine
DX: M48.061 Spinal stenosis, lumbar region without neurogenic claudication (principal); M96.1 Postlaminectomy syndrome, not elsewhere classified; M54.5 Low back pain; J44.9 Chronic obstructive pulmonary disease, unspecified; K21.9 Gastro-esophageal reflux disease without esophagitis; M19.90 Unspecified osteoarthritis, unspecified site

== ENCOUNTER → 2017-11-19 | Outpatient (CLI) | payer OTHER ==
[~2017-11-19] MED LIST changes: -ACETAMINOPHEN 325 MG TAB PO PRN; -ATROPINE SULFATE 0.1 MG/ML 5ML SYR IV PRN; -BACITRACIN 50000 UNIT VIAL ONE; -BUPIVACAINE/EPINEPHRINE 0.5% MPF 1:200,000 30 ML VIAL ONE; -CHECK SCOPOLAMINE PATCH PLACEMENT SCH; -DEXAMETHASONE SOD INJ 4 MG/ML VIAL ONE; -EpHEDrine SULFATE INJ 50 MG/ML AMP IV PRN; -EpHEDrine SULFATE INJ 50 MG/ML AMP ONE; -FENTANYL CITRATE INJ 50 MCG/1 ML 2 ML VIAL IV PRN; -FENTANYL CITRATE INJ 50 MCG/1 ML 2 ML VIAL ONE; -FLOSEAL HEMOSTATIC MATRIX 5ML TOP ONE; +GADAVIST IV PRN; -GLYCOPYRROLATE INJ 0.2 MG/ML VIAL ONE; -HYDROmorphone INJ 1 MG/ML SYR IV PRN; -KETOROLAC TROMETHAMINE 30 MG/ML VIAL IV. PRN; -LACTATED RINGER'S 1000ML 1,000 ML IV SCH; -LIDOCAINE HCL 2% 2 ML VIAL (20MG/ML) ONE; -MIDAZOLAM HCL 1 MG/ML 2ML VIAL ONE; -NEOSTIGMINE METHYLSULFATE 5 MG/5 ML SYR ONE; -NURSING VERBAL MED ORDER ONE; -ONDANSETRON INJ 2 MG/ML 2 ML VIAL IV PRN; -ONDANSETRON INJ 2 MG/ML 2 ML VIAL ONE; -OXYCODONE HCL IR 5 MG TAB (IMMEDIATE RELEASE) PO PRN; -OXYCODONE/ACETAMINOPHEN 5-325 TAB ONE; -PHENYLEPHRINE HCL INJ 10 MG/ML VIAL ONE; -PROPOFOL IV EMULSION 10 MG/ML 20 ML VIAL IV ONE; -ROCURONIUM BROMIDE 10 MG/ML 5 ML VIAL IV ONE; -SCOPOLAMINE 1.5 MG TDSY TD ONE; -SUCCINYLCHOLINE CHLORIDE 20 MG/ML 10 ML VIAL IV ONE
--- NOTE | 2017-11-19 21:57 | DIAGNOSTIC IMAGING REPORT ---
MRI OF THE THORACIC SPINE COMBO CLINICAL HISTORY: Thoracic back pain. Spinal stimulator. Question clinical concern for infection. COMPARISON STUDY: No priors. TECHNIQUE: MRI of the thoracic spine is performed using various T1 and T2-weighted sequences in the axial and sagittal planes. Contrast-enhanced sequences are acquired following the IV administration of 8.5 cc of Gadavist. The examination is modestly degraded by motion artifact and susceptibility artifact from intrathecal spinal hardware. Interpretation is also degraded without plain film correlate. FINDINGS: Vertebral body height and alignment are maintained throughout the thoracic spine. Normal marrow signal intensity is preserved throughout the visualized bony structures. No destructive bony process is identified. The transverse and spinous processes appear intact. The intervertebral discs are normal in height and signal intensity. There is no disc herniation or acquired compromise of the central canal. No significant neural foraminal stenosis is suggested throughout the thoracic spine. The thoracic spinal cord is normal in morphology and signal intensity. No abnormal cord enhancement is seen on the postcontrast images. The conus medullaris terminates at the L1-L2 interspace. Fusion hardware is noted in the lumbar spine on the football scout sequences. There is susceptibility artifact from a presumed spinal stimulator device present within the right paraspinous soft tissues in the lumbar region. Leads enter the central canal posteriorly at T11-T12. These course within the posterior aspect of the central canal to the level of T9. The leads themselves cannot be evaluated by MRI. There is no evidence of epidural fluid collection. The paraspinous soft tissues are normal as visualized. There is no evidence of superficial soft tissue fluid collection. The lung parenchyma is grossly normal but not well evaluated by MRI. IMPRESSION: 1. Unremarkable MRI of the thoracic spine. 2. There is no disc herniation or acquired compromise of the central canal. 3. Intrathecal leads are noted, as detailed above. These are not well evaluated by MRI. 4. No epidural collection or abnormal enhancement is suggested. Dictated: 11/19/2017 9:09 PM Transcribed: 11/19/2017 9:56 PM [email or web address] Electronically signed by: Hamlet Carl M.D. 11/19/2017 10:07 PM Dictated Date/Time: 11/19/2017 9:09 PM
== END | disposition home or self-care (01) ==
LOC: C.MRI 19:25
PROVIDERS: ATTEND Orthopaedic Surgery Orthopaedic Surgery of the Spine
DX: M54.6 Pain in thoracic spine (principal)